=== PATIENT | female | born 1960 | race Caucasian/White ===

== ENCOUNTER → 2016-07-09 | Outpatient (CLI) | payer OTHER ==
--- NOTE | 2016-07-09 15:03 | REP ---
ABDOMEN, FLAT AND UPRIGHT PA CHEST: HISTORY: Hematuria. COMPARISON: 08/25/2008 Air is present in small and large intestine. There are no air fluid levels or dilated loops of intestine. There is no pneumoperitoneum. The lungs are clear. IMPRESSION: Nonspecific bowel gas pattern. Signed by Andres Wills MD 07/09/2016 03:04 P
[2016-07-09 16:37] LABS: MEAN CORPUSCULAR HEMOGLOBIN 34.8 pg (27.0-33.0); MEAN CORPUSCULAR HGB CONC 34.7 g/dl (32.0-36.5); MEAN CORPUSCULAR VOLUME 100.4 fl (80.0-96.0)
[2016-07-09 16:45] LABS: ALBUMIN 4.5 GM/DL (3.2-5.2); ALBUMIN/GLOBULIN RATIO 1.45 (1.00-1.93); ALKALINE PHOSPHATASE 97 U/L (45-117); ALT/SGPT 66 U/L (12-78); ANION GAP 9 MEQ/L (8-16); AST/SGOT 46 U/L (15-37); BILIRUBIN,TOTAL 0.4 MG/DL (0.2-1.0); BLOOD UREA NITROGEN 14 MG/DL (7-18); CALCIUM LEVEL 9.4 MG/DL (8.5-10.1); CARBON DIOXIDE LEVEL 27 MEQ/L (21-32); CHLORIDE LEVEL 104 MEQ/L (98-107); CREATININE FOR GFR 0.78 MG/DL (0.55-1.02); GLOMERULAR FILTRATION RATE > 60.0 (>51); GLUCOSE, FASTING 93 MG/DL (70-105); SODIUM LEVEL 140 MEQ/L (136-145); TOTAL PROTEIN 7.6 GM/DL (6.4-8.2)
[2016-07-09 17:12] LABS: BASOPHILS 3 % (0-4); EOSINOPHILS 3 % (0-5)
== END ==
LOC: M WUC 14:26
PROVIDERS: ATTEND Physician Assistant
DX: R31.9 Hematuria, unspecified (principal)

== ENCOUNTER 2017-04-03 11:35 | Emergency (ER) | payer OTHER ==
[2017-04-03 12:12] LABS: BASO # 0.1 10^3/uL (0.0-0.2); BASO % 0.8 % (0.0-1.0); EOS # 0.2 10^3/uL (0.0-0.50); EOS % 2.1 % (0.0-3.0); HEMATOCRIT 45.2 % (36.0-47.0); IMMATURE GRANULOCYTE % 0.5 % (0-0); LYMPH # 2.5 10^3/uL (1.5-4.5); LYMPH % 29.9 % (24.0-44.0); MEAN CORPUSCULAR HEMOGLOBIN 34.1 pg (27.0-33.0); MEAN CORPUSCULAR HGB CONC 35.4 g/dl (32.0-36.5); MEAN CORPUSCULAR VOLUME 96.4 fl (80.0-96.0); MONO # 0.6 10^3/uL (0.0-0.8); MONO % 7.2 % (0.0-5.0); NEUTROPHILS # 5.1 10^3/uL (1.8-7.7); NEUTROPHILS % 59.5 % (36.0-66.0); PLATELET COUNT, AUTOMATED 272 10^3/uL (150-450); RED BLOOD COUNT 4.69 10^6/uL (4.00-5.40); RED CELL DISTRIBUTION WIDTH 11.5 % (11.5-14.5); WHITE BLOOD COUNT 8.5 10^3/uL (4.0-10.0)
[2017-04-03 12:36] LABS: INR 0.96; PROTHROMBIN TIME 12.9 SECONDS (12.4-14.5)
[2017-04-03] MEDS: LORazepam 2 MG/ML VIAL (J2060) IV (12:37)
[2017-04-03 12:40] LABS: ALBUMIN 4.3 GM/DL (3.2-5.2); ALKALINE PHOSPHATASE 97 U/L (45-117); ALT/SGPT 40 U/L (12-78); ANION GAP 9 MEQ/L (8-16); AST/SGOT 38 U/L (7-37); BILIRUBIN,DIRECT < 0.1 MG/DL (0.0-0.2); BILIRUBIN,TOTAL 0.8 MG/DL (0.2-1.0); BLOOD UREA NITROGEN 13 MG/DL (7-18); CALCIUM LEVEL 9.4 MG/DL (8.5-10.1); CARBON DIOXIDE LEVEL 27 MEQ/L (21-32); CHLORIDE LEVEL 105 MEQ/L (98-107); CPK CREATINE PHOSPHOKINASE 81 U/L (26-192); CREATININE FOR GFR 0.71 MG/DL (0.55-1.02); GLOMERULAR FILTRATION RATE > 60.0 (>51); GLUCOSE, FASTING 90 MG/DL (70-100); LIPASE 205 U/L (73-393); POTASSIUM SERUM 4.3 MEQ/L (3.5-5.1); SODIUM LEVEL 141 MEQ/L (136-145); TOTAL PROTEIN 8.2 GM/DL (6.4-8.2); TROPONIN I < 0.02 NG/ML (< 0.10)
[2017-04-03 12:50] LABS: MB/CK RELATIVE INDEX 1.23 (< OR =4); NT-PRO BNP 23 PG/ML (<125)
[2017-04-03 14:03] LABS: D-DIMER QUANT < 270.0 ng/ml (<500)
[2017-04-03] MEDS: ASPIRIN 81 MG CHEW TABLET PO (14:44)
[2017-04-03 18:29] LABS: CPK CREATINE PHOSPHOKINASE 54 U/L (26-192); MB/CK RELATIVE INDEX 1.85 (< OR =4); TROPONIN I < 0.02 NG/ML (< 0.10)
[2017-04-03 20:40] LABS: CPK CREATINE PHOSPHOKINASE 50 U/L (26-192); TROPONIN I < 0.02 NG/ML (< 0.10)
== END 2017-04-03 21:34 | disposition home or self-care (01) ==
LOC: M ED 11:35
DX: R07.9 Chest pain, unspecified (principal); E03.9 Hypothyroidism, unspecified; Z82.49 Family history of ischemic heart disease and other diseases of the circulatory system
CPT/HCPCS: J2060

== ENCOUNTER → 2017-07-10 | Outpatient (CLI) | payer OTHER ==
[2017-07-10 15:10] LABS: ALBUMIN 4.2 GM/DL (3.2-5.2); ALBUMIN/GLOBULIN RATIO 1.31 (1.00-1.93); ALKALINE PHOSPHATASE 102 U/L (45-117); ALT/SGPT 37 U/L (12-78); ANION GAP 8 MEQ/L (8-16); AST/SGOT 31 U/L (7-37); BILIRUBIN,TOTAL 0.6 MG/DL (0.2-1.0); BLOOD UREA NITROGEN 15 MG/DL (7-18); CALCIUM LEVEL 8.5 MG/DL (8.5-10.1); CARBON DIOXIDE LEVEL 26 MEQ/L (21-32); CHLORIDE LEVEL 107 MEQ/L (98-107); CHOLESTEROL LEVEL 248 MG/DL (<200); CHOLESTEROL RISK RATIO 5.061 (<5); CREATININE FOR GFR 0.63 MG/DL (0.55-1.30); FREE T4 0.92 NG/DL (0.76-1.46); GLOMERULAR FILTRATION RATE > 60.0 (>51); GLUCOSE, FASTING 93 MG/DL (70-100); HDL CHOLESTEROL 49 MG/DL (>40); LDL CHOLESTEROL 134.4 MG/DL (<100); NON-HDL-C 199 MG/DL; SODIUM LEVEL 141 MEQ/L (136-145); TOTAL PROTEIN 7.4 GM/DL (6.4-8.2); TRIGLYCERIDES LEVEL 323 MG/DL (<150)
== END ==
LOC: M WUC 09:31
DX: I10 Essential (primary) hypertension (principal); Z13.220 Encounter for screening for lipoid disorders
CPT/HCPCS: 84443

== ENCOUNTER → 2017-10-16 | Outpatient (REF) | payer OTHER | LOC: M LAB REF 20:47 | DX: L03.031 Cellulitis of right toe (principal) | CPT/HCPCS: 87186 ==

== ENCOUNTER → 2018-02-06 | Outpatient (CLI) | payer OTHER ==
[2018-02-06 13:18] LABS: ALBUMIN 4.4 GM/DL (3.2-5.2); ALBUMIN/GLOBULIN RATIO 1.29 (1.00-1.93); ALKALINE PHOSPHATASE 100 U/L (45-117); ALT/SGPT 59 U/L (12-78); ANION GAP 7 MEQ/L (8-16); AST/SGOT 38 U/L (7-37); BILIRUBIN,TOTAL 0.3 MG/DL (0.2-1.0); BLOOD UREA NITROGEN 17 MG/DL (7-18); CALCIUM LEVEL 9.5 MG/DL (8.5-10.1); CARBON DIOXIDE LEVEL 29 MEQ/L (21-32); CHLORIDE LEVEL 107 MEQ/L (98-107); CHOLESTEROL LEVEL 307 MG/DL (<200); CHOLESTEROL RISK RATIO 5.792 (<5); CREATININE FOR GFR 0.77 MG/DL (0.55-1.30); FREE T3 3.4 PG/ML (2.2-4.0); FREE T4 0.74 NG/DL (0.76-1.46); GLOMERULAR FILTRATION RATE > 60.0 (>51); GLUCOSE, FASTING 92 MG/DL (70-100); HDL CHOLESTEROL 53 MG/DL (>40); LDL CHOLESTEROL 175 MG/DL (<100); NON-HDL-C 254 MG/DL; POTASSIUM SERUM 5.4 MEQ/L (3.5-5.1); SODIUM LEVEL 143 MEQ/L (136-145); TOTAL PROTEIN 7.8 GM/DL (6.4-8.2); TRIGLYCERIDES LEVEL 397 MG/DL (<150)
[2018-02-06 13:20] LABS: TOTAL 25(OH) VITAMIN D 40.2 NG/ML (30.0-100.0)
== END ==
LOC: M WUC 10:10
DX: E55.9 Vitamin D deficiency, unspecified (principal); E03.9 Hypothyroidism, unspecified; E78.49 Other hyperlipidemia
CPT/HCPCS: 84443

== ENCOUNTER → 2019-03-31 | Outpatient (REF) | payer OTHER ==
[~2019-03-31] MED LIST: ACYC400T; ALLE24TA7 PO; ASPI81CH33 PO; KRIL1CAP6 PO; SYNT75TA; VITA100067 PO; VITA80003 PO
== END ==
LOC: M LAB REF 20:28
PROVIDERS: ATTEND Physician Assistant
DX: R30.0 Dysuria (principal)

== ENCOUNTER → 2019-04-14 | Outpatient (CLI) | payer OTHER ==
[2019-04-14 13:26] LABS: HEMATOCRIT 44.8 % (36.0-47.0); HEMOGLOBIN 15.1 g/dl (12.0-15.5); MEAN CORPUSCULAR HEMOGLOBIN 33.3 pg (27.0-33.0); MEAN CORPUSCULAR HGB CONC 33.7 g/dl (32.0-36.5); MEAN CORPUSCULAR VOLUME 98.9 fl (80.0-96.0); PLATELET COUNT, AUTOMATED 273 10^3/uL (150-450); RED BLOOD COUNT 4.53 10^6/uL (4.00-5.40); WHITE BLOOD COUNT 8.1 10^3/uL (4.0-10.0)
[2019-04-14 14:01] LABS: ALBUMIN 4.4 GM/DL (3.2-5.2); ALT/SGPT 30 U/L (12-78); BILIRUBIN,TOTAL 0.5 MG/DL (0.2-1.0); BLOOD UREA NITROGEN 14 MG/DL (7-18); CALCIUM LEVEL 8.9 MG/DL (8.5-10.1); CARBON DIOXIDE LEVEL 28 MEQ/L (21-32); CHLORIDE LEVEL 107 MEQ/L (98-107); CHOLESTEROL LEVEL 250 MG/DL (<200); FREE T3 2.8 PG/ML (2.2-4.0); FREE T4 1.05 NG/DL (0.76-1.46); GLOMERULAR FILTRATION RATE > 60.0 (>51); GLUCOSE, FASTING 101 MG/DL (70-100); HDL CHOLESTEROL 58 MG/DL (>40); LDL CHOLESTEROL 119 MG/DL (<100); NON-HDL-C 192 MG/DL; SODIUM LEVEL 140 MEQ/L (136-145); TOTAL 25(OH) VITAMIN D 30.5 NG/ML (30.0-100.0); TOTAL PROTEIN 7.2 GM/DL (6.4-8.2); TRIGLYCERIDES LEVEL 364 MG/DL (<150)
== END ==
LOC: M WUC 09:06
PROVIDERS: ATTEND Family Medicine
DX: E55.9 Vitamin D deficiency, unspecified (principal); E03.9 Hypothyroidism, unspecified; I10 Essential (primary) hypertension

== ENCOUNTER → 2019-04-18 | Outpatient (REF) | payer OTHER | LOC: M LAB REF 17:16 | PROVIDERS: ATTEND Physician Assistant | DX: J02.9 Acute pharyngitis, unspecified (principal) ==

== ENCOUNTER → 2019-05-17 | Outpatient (REF) | payer OTHER | LOC: M LAB REF 20:29 | PROVIDERS: ATTEND Physician Assistant | DX: R30.0 Dysuria (principal) ==

== ENCOUNTER 2019-11-26 07:58 | Emergency (ER) | payer OTHER ==
[~2019-11-26] VITALS: Ht 160 cm; Wt 86.4 kg
[2019-11-26] MEDS ORDERED: SYNT100T PO (08:14)
[2019-11-26] MEDS ORDERED: LOSA50TA88 PO (08:14)
[2019-11-26] MEDS ORDERED: GEMF600T5 PO (08:14)
[2019-11-26] MEDS ORDERED: BUPR150T3 PO (08:14)
[2019-11-26] MEDS ORDERED: ONDANSETRON 4MG/2ML VIAL IV ONE (08:30)
[2019-11-26] MEDS ORDERED: MORPHINE 4 MG/ML 1ML VIAL/SYRINGE (J2270) IV PRN (08:30)
--- NOTE | 2019-11-26 08:40 | REPVR ---
PROCEDURE INFORMATION: Exam: XR Chest, 1 View Exam date and time: 11/26/2019 8:23 AM Age: 59 years old Clinical indication: Chest pain; Type not specified TECHNIQUE: Imaging protocol: XR of the chest Views: 1 view. COMPARISON: CT PORTABLE CHEST X-RAY 04/03/2017 12:28 PM FINDINGS: Lungs: Low lung volumes. No consolidation. Pleural space: No significant pleural effusions. No pneumothorax. Heart/Mediastinum: Cardiac size is normal and mediastinal contour stable. Bones/joints: No acute bony abnormalities. IMPRESSION: No acute abnormalities are identified. Electronically signed by: Hari Caballero On 11/26/2019 08:40:21 AM
[2019-11-26] MEDS ORDERED: ISOVUE-370 76% 100ML VIAL As Ordered ONE (09:20)
[2019-11-26 09:51] LABS: BASO # 0.1 10^3/uL (0.0-0.2); BASO % 0.7 % (0.0-1.0); EOS # 0.1 10^3/uL (0.0-0.5); EOS % 1.9 % (0.0-3.0); HEMATOCRIT 44.9 % (36.0-47.0); HEMOGLOBIN 15.4 g/dl (12.0-15.5); LYMPH # 2.4 10^3/uL (1.5-5.0); LYMPH % 32.4 % (24.0-44.0); MEAN CORPUSCULAR HEMOGLOBIN 33.3 pg (27.0-33.0); MEAN CORPUSCULAR HGB CONC 34.3 g/dl (32.0-36.5); MONO # 0.7 10^3/uL (0.0-0.8); MONO % 8.6 % (0.0-5.0); NEUTROPHILS # 4.2 10^3/uL (1.5-8.5); NEUTROPHILS % 55.9 % (36.0-66.0); PLATELET COUNT, AUTOMATED 259 10^3/uL (150-450); RED BLOOD COUNT 4.63 10^6/uL (4.00-5.40); WHITE BLOOD COUNT 7.5 10^3/uL (4.0-10.0)
[2019-11-26 10:00] LABS: INR 0.95; PROTHROMBIN TIME 12.9 SECONDS (12.5-14.3)
--- NOTE | 2019-11-26 10:09 | REPVR ---
PROCEDURE INFORMATION: Exam: CT Angiography Chest With Contrast Exam date and time: 11/26/2019 9:12 AM Age: 59 years old Clinical indication: Chest pain; Additional info: Chest pain R/O pe TECHNIQUE: Imaging protocol: Computed tomographic angiography of the chest with intravenous contrast. 3D rendering (Not supervised by radiologist): MIP and/or 3D reconstructed images were created by the technologist. Radiation optimization: All CT scans at this facility use at least one of these dose optimization techniques: automated exposure control; mA and/or kV adjustment per patient size (includes targeted exams where dose is matched to clinical indication); or iterative reconstruction. Contrast material: ISOVUE 370; Contrast volume: 100 ml; Contrast route: INTRAVENOUS (IV); COMPARISON: CR PORTABLE CHEST X-RAY 11/26/2019 8:15 AM FINDINGS: Pulmonary arteries: No evidence of pulmonary embolism. Aorta: Mild atherosclerosis. No thoracic aortic aneurysm or dissection. Lungs: The lung volumes are quite low with bilateral dependent and subsegmental atelectasis. Heterogeneous attenuation of the lung parenchyma is likely secondary to hypoaeration. No airspace consolidation. Pleural space: No pleural effusions. No pneumothorax. Heart: Cardiac size is normal. No pericardial effusion. Lymph nodes: No significant adenopathy. Bones/joints: Mild degenerative change thoracic spine. No acute fracture. Soft tissues: Unremarkable. IMPRESSION: 1. No evidence of pulmonary embolism. 2. Mild atherosclerosis. No thoracic aortic aneurysm or dissection. 3. Marked hypoventilatory changes within the lungs. No consolidation. Electronically signed by: Hari Caballero On 11/26/2019 10:09:44 AM
[2019-11-26 10:24] LABS: ALBUMIN 4.2 GM/DL (3.2-5.2); BILIRUBIN,DIRECT 0.2 MG/DL (0.0-0.2); BILIRUBIN,TOTAL 0.7 MG/DL (0.2-1.0); THYROID STIMULATING HORMONE 3.15 uIU/ML (0.358-3.740); TOTAL PROTEIN 7.3 GM/DL (6.4-8.2)
--- NOTE | 2019-11-26 10:44 | REPVR ---
PROCEDURE INFORMATION: Exam: CT Abdomen And Pelvis Without Contrast Exam date and time: 11/26/2019 9:12 AM Age: 59 years old Clinical indication: Abdominal pain; Additional info: Left fp? Stone TECHNIQUE: Imaging protocol: Computed tomography of the abdomen and pelvis without contrast. Radiation optimization: All CT scans at this facility use at least one of these dose optimization techniques: automated exposure control; mA and/or kV adjustment per patient size (includes targeted exams where dose is matched to clinical indication); or iterative reconstruction. COMPARISON: CR ABDOMEN FLAT/UPRIGHT, PA CHEST 07/09/2016 2:41 PM FINDINGS: Lungs: Bibasilar atelectasis. No consolidation. Heart: Cardiac size is normal. Coronary artery calcification. No pericardial or pleural effusions. Liver: Hepatomegaly with diffuse fatty infiltration of the liver. Gallbladder and bile ducts: No calcified gallstones. No ductal dilatation. Pancreas: Unremarkable. No ductal dilatation. Spleen: Unremarkable. No splenomegaly. Adrenals: Unremarkable. No mass. Kidneys and ureters: The kidneys demonstrate no evidence of hydronephrosis or nephrolithiasis. Neither ureter is dilated. No ureteral calculi. Stomach and bowel: No bowel obstruction. Incidental submucosal fat deposition within the colon. No bowel wall thickening or inflammatory stranding. Appendix: Normal appendix. Intraperitoneal space: No free fluid. No free air. Vasculature: Atherosclerosis. No abdominal aortic aneurysm. Lymph nodes: No significant adenopathy. Bladder: Unremarkable as visualized. Reproductive: Status post hysterectomy. Bones/joints: Degenerative change within the lower thoracic and lumbar spine, characterized predominantly by facet arthrosis within the mid and lower lumbar spine. No fracture or acute bony abnormality. Soft tissues: Unremarkable. IMPRESSION: 1. No evidence of hydronephrosis, nephrolithiasis or obstructive uropathy. 2. Hepatomegaly with diffuse hepatic steatosis. 3. Additional non-emergent findings, as discussed above. Electronically signed by: Hari Caballero On 11/26/2019 10:44:31 AM
[2019-11-26] MEDS ORDERED: LABETALOL 100 MG TAB PO ONE (10:45)
[2019-11-26] MEDS ORDERED: KETOROLAC 30 MG/ML 1ML VIAL IV ONE (12:30)
[2019-11-26] MEDS ORDERED: TRAM50TA2 PO (13:09)
[2019-11-26 13:45] VITALS: BP 139/75
--- NOTE | 2019-11-27 11:57 | ECGEPIP ---
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
== END 2019-11-26 14:03 | disposition home or self-care (01) ==
LOC: M ED 07:58
DX: R07.89 Other chest pain (principal); N64.4 Mastodynia; I70.90 Unspecified atherosclerosis; R11.2 Nausea with vomiting, unspecified; I10 Essential (primary) hypertension; Z88.1 Allergy status to other antibiotic agents; Z79.899 Other long term (current) drug therapy
CPT/HCPCS: 71045; 71275; 74176; 80047; 80076; 81001; 83690; 83880; 84443; 84484; 85025; 85610; 93005; 93041; 94760; 96374; 96375; 99285; J1885; J2270; J2405; Q9967

== ENCOUNTER → 2020-09-08 | Outpatient (CLI) | payer OTHER ==
[~2020-09-08] MED LIST changes: +ACYC1TAB; -ACYC400T; +BUPR150T12 PO; +GEMF600T5 PO; +LOSA50TA88 PO; +SYNT100T PO; +TRAM50TA2 PO
--- NOTE | 2020-09-08 14:48 | REP ---
INDICATION: GLOBYUS SENSATION. COMPARISON: None. TECHNIQUE: Bilateral thyroid ultrasound FINDINGS: The right lobe of the thyroid gland measures 4.8 x 2 x 1.5 cm and the left lobe measures 3.6 x 1.5 x 1.3 cm. The isthmus measures 3 mm. The thyroid parenchymal echo pattern is slightly heterogenous. There is a single 9 mm sized solid nodule seen in the upper pole region on the right IMPRESSION: No evidence of thyromegaly. Small single solid nodule as described above. Follow-up is recommended. <Electronically signed by Ezekiel Shabazz > 09/08/20 [id number]
== END ==
LOC: M RAD 13:48
PROVIDERS: ATTEND Physician Assistant Medical
DX: E04.1 Nontoxic single thyroid nodule (principal)

== ENCOUNTER → 2020-12-09 | Outpatient (CLI) | payer OTHER ==
[~2020-12-09] MED LIST changes: +LEVOTAB10; +LOPI600T; +OMEP-221; +SYNT112T2
== END ==
LOC: M LABSMTC 09:56
PROVIDERS: ATTEND Anesthesiology
DX: Z01.818 Encounter for other preprocedural examination (principal); Z11.52 Encounter for screening for COVID-19

== ENCOUNTER 2020-12-14 06:49 | Day surgery (SDC) | payer OTHER ==
[~2020-12-14] VITALS: Ht 162.6 cm; Wt 85.9 kg
[~2020-12-14 06:49] MED LIST changes: +NS 1,000 ML IV ONE
[2020-12-14] MEDS ORDERED: LIDOCAINE 2% 100MG/5ML SDV (FOR ANES.) As Ordered ONE (07:09)
[2020-12-14] MEDS ORDERED: propofoL 200 MG/20 ML VIAL As Ordered ONE ×3 (07:09→08:28)
[2020-12-14] MEDS ORDERED: fentaNYL 100 MCG/2 ML INJECTION (J3010) As Ordered ONE (08:04)
--- NOTE | 2020-12-14 08:20 | ROOR ---
Patient Name: Dariana Adler Procedure Date: 12/14/2020 8:02 AM Date of : 1960 Age: 60 Room: [facility] Gender: Female Note Status: Finalized Procedure: Upper GI endoscopy Indications: Dysphagia Providers: Maxim Cai Jr, MD Referring MD: RAMÓN Sin Requesting Provider: Medicines: Propofol per Anesthesia Complications: No immediate complications. Procedure: Pre-Anesthesia Assessment: - Prior to the procedure, a History and Physical was performed, and patient medications and allergies were reviewed. The patient is competent. The risks and benefits of the procedure and the sedation options and risks were discussed with the patient. All questions were answered and informed consent was obtained. Patient identification and proposed procedure were verified by the physician and the nurse in the pre-procedure area and in the procedure room. Mental Status Examination: alert and oriented. Airway Examination: normal oropharyngeal airway and neck mobility. Respiratory Examination: clear to auscultation. CV Examination: normal. ASA Grade Assessment: II - A patient with mild systemic disease. After reviewing the risks and benefits, the patient was deemed in satisfactory condition to undergo the procedure. The anesthesia plan was to use moderate sedation / analgesia (conscious sedation). Immediately prior to administration of medications, the patient was re-assessed for adequacy to receive sedatives. The heart rate, respiratory rate, oxygen saturations, blood pressure, adequacy of pulmonary ventilation, and response to care were monitored throughout the procedure. The physical status of the patient was re-assessed after the procedure. The Endoscope was introduced through the mouth, and advanced to the second part of duodenum. The upper GI endoscopy was accomplished without difficulty. The patient tolerated the procedure well. Findings: The upper third of the esophagus was normal. Grade II varices were found in the middle third of the esophagus. They were small in size. Abnormal motility was noted in the lower third of the esophagus. There is spasticity of the esophageal body. The distal esophagus/lower esophageal sphincter is spastic, but gives up passage to the endoscope. The gastroesophageal junction was normal. Diffuse mildly erythematous mucosa without bleeding was found in the gastric antrum and in the prepyloric region of the stomach. Biopsies were taken with a cold forceps for histology. The duodenal bulb, first portion of the duodenum and second portion of the duodenum were normal. Impression: - Normal upper third of esophagus. - Grade II esophageal varices. - Abnormal esophageal motility, suspicious for esophageal spasm. - Normal gastroesophageal junction. - Erythematous mucosa in the antrum and prepyloric region of the stomach. Biopsied. - Normal duodenal bulb, first portion of the duodenum and second portion of the duodenum. Recommendation: - Discharge patient to home (ambulatory). - Return to my office as previously scheduled. - Perform a barium enema at appointment to be scheduled. Procedure Code(s): --- Professional --- 08879, Esophagogastroduodenoscopy, flexible, transoral; with biopsy, single or multiple Diagnosis Code(s): --- Professional --- I85.00, Esophageal varices without bleeding K22.4, Dyskinesia of esophagus K31.89, Other diseases of stomach and duodenum R13.10, Dysphagia, unspecified CPT copyright 2019 [employer]. All rights reserved. The codes documented in this report are preliminary and upon shoe singer review may be revised to meet current compliance requirements. Maxim Cai MD Maxim Cai Jr, MD 12/14/2020 8:19:44 AM Electronically signed by Maxim Cai Jr, MD Number of Addenda: 0 Note Initiated On: 12/14/2020 8:02 AM Estimated Blood Loss: Estimated blood loss: none.
--- NOTE | 2020-12-14 08:41 | ROOR ---
Patient Name: Dariana Adler Procedure Date: 12/14/2020 8:03 AM Date of : 1960 Age: 60 Room: [facility] Gender: Female Note Status: Finalized Procedure: Colonoscopy Indications: Screening for colorectal malignant neoplasm Providers: Maxim Cai Jr, MD Referring MD: RAMÓN Sin Requesting Provider: Medicines: Propofol per Anesthesia Complications: No immediate complications. Procedure: Pre-Anesthesia Assessment: - Prior to the procedure, a History and Physical was performed, and patient medications and allergies were reviewed. The patient is competent. The risks and benefits of the procedure and the sedation options and risks were discussed with the patient. All questions were answered and informed consent was obtained. Patient identification and proposed procedure were verified by the physician and the nurse in the pre-procedure area and in the procedure room. Mental Status Examination: alert and oriented. Airway Examination: normal oropharyngeal airway and neck mobility. Respiratory Examination: clear to auscultation. CV Examination: normal. ASA Grade Assessment: II - A patient with mild systemic disease. After reviewing the risks and benefits, the patient was deemed in satisfactory condition to undergo the procedure. The anesthesia plan was to use moderate sedation / analgesia (conscious sedation). Immediately prior to administration of medications, the patient was re-assessed for adequacy to receive sedatives. The heart rate, respiratory rate, oxygen saturations, blood pressure, adequacy of pulmonary ventilation, and response to care were monitored throughout the procedure. The physical status of the patient was re-assessed after the procedure. The Colonoscope was introduced through the anus and advanced to the ileocecal valve. The colonoscopy was performed without difficulty. The patient tolerated the procedure well. The quality of the bowel preparation was adequate. Findings: The recto-sigmoid colon, sigmoid colon, transverse colon, ascending colon and ileocecal valve appeared normal. Two polyps were found in the rectum and descending colon. The polyps were diminutive in size. These polyps were removed with a cold snare. Resection and retrieval were complete. Impression: - The recto-sigmoid colon, sigmoid colon, transverse colon, ascending colon and ileocecal valve are normal. - Two diminutive polyps in the rectum and in the descending colon, removed with a cold snare. Resected and retrieved. Recommendation: - Discharge patient to home (ambulatory). - Repeat colonoscopy in 5 years for surveillance based on pathology results. Procedure Code(s): --- Professional --- 85527, Colonoscopy, flexible; with removal of tumor(s), polyp(s), or other lesion(s) by snare technique Diagnosis Code(s): --- Professional --- Z12.11, Encounter for screening for malignant neoplasm of colon K62.1, Rectal polyp K63.5, Polyp of colon CPT copyright 2019 [employer]. All rights reserved. The codes documented in this report are preliminary and upon sales and service advisor review may be revised to meet current compliance requirements. Maxim Cai MD Maxim Cai Jr, MD 12/14/2020 8:41:12 AM Electronically signed by Maxim Cai Jr, MD Number of Addenda: 0 Note Initiated On: 12/14/2020 8:03 AM Estimated Blood Loss: Estimated blood loss: none.
[2020-12-14 09:05] VITALS: BP 130/63
== END 2020-12-14 09:11 | disposition home or self-care (01) ==
LOC: M OPP 06:49
PROVIDERS: ATTEND Surgery
DX: Z12.11 Encounter for screening for malignant neoplasm of colon (principal); K63.5 Polyp of colon; K62.1 Rectal polyp; I85.00 Esophageal varices without bleeding; K22.4 Dyskinesia of esophagus; K31.89 Other diseases of stomach and duodenum; R13.10 Dysphagia, unspecified; Z79.899 Other long term (current) drug therapy; Z88.1 Allergy status to other antibiotic agents
CPT/HCPCS: 43239; 45385; 88305; J3010

== ENCOUNTER → 2021-11-21 | Outpatient (REF) | payer OTHER ==
[~2021-11-21] MED LIST changes: +LOSA50TA28 PO; -LOSA50TA88 PO; -NS 1,000 ML IV ONE; -OMEP-221; +OMEP40CA5
== END ==
LOC: M LAB REF 11:43
PROVIDERS: ATTEND Physician Assistant Medical
DX: H35.9 Unspecified retinal disorder (principal); R53.83 Other fatigue

== ENCOUNTER → 2022-02-20 | Outpatient (REF) | payer OTHER | LOC: M LAB REF 13:04 | PROVIDERS: ATTEND Physician Assistant Medical | DX: H53.2 Diplopia (principal) ==

== ENCOUNTER → 2024-07-12 | Outpatient (REF) | payer OTHER | LOC: M LAB REF 12:15 | PROVIDERS: ATTEND Physician Assistant Medical | DX: N39.0 Urinary tract infection, site not specified (principal) ==